=== PATIENT | female | born 1995 | race Caucasian/White ===

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

== ENCOUNTER 2017-01-09 20:36 | Emergency (ER) | payer OTHER ==
[~2017-01-09] VITALS: Ht 165.1 cm; Wt 72.6 kg
[~2017-01-09 20:36] MED LIST changes: -DEXTROAMPH SACC20 M1 PO; -Motrin,Rufen800 MG PO; -PENTASA500 M1 PO; -ULTRAM50 MG PO
[2017-01-09] MEDS ORDERED: PENTASA500 M1 PO (20:51)
[2017-01-09] MEDS ORDERED: DEXTROAMPH SACC20 M1 PO (20:51)
[2017-01-09 21:37] LABS: BASO % 0.3 % (0.0-1.0); EOS # 0.1 10*3/uL (0.0-0.4); EOS % 1.1 % (1.0-4.0); HEMATOCRIT 40.4 % (37.0-47.0); HEMOGLOBIN 13.7 g/dl (12.0-16.0); LYMPH # 2.7 10*3/uL (1.3-4.4); LYMPH % 30.3 % (27.0-41.0); MEAN CELL VOLUME 91.6 fl (81.0-99.0); MEAN CORPUSCULAR HGB 31.1 pg (27.0-31.0); MEAN CORPUSCULAR HGB CONC 33.9 g/dl (33.0-37.0); MEAN PLATELET VOLUME 8.8 fl (9.6-12.3); MONO # 0.7 10*3/uL (0.1-1.0); MONO % 8.1 % (3.0-9.0); NEUT # 5.4 10*3/uL (2.3-7.9); PLATELET COUNT AUTOMATED 375 10*3/uL (130-400); RED BLOOD COUNT 4.41 10*6/uL (4.10-5.10); WHITE BLOOD COUNT 9.1 10*3/uL (4.8-10.8)
[2017-01-09 21:53] LABS: ALBUMIN 4.1 gm/dl (3.1-4.5); ALKALINE PHOSPHATASE 85 U/L (45-117); BILIRUBIN, TOTAL 0.1 mg/dl (0.2-1.0); BUN 11 mg/dl (7-24); CARBON DIOXIDE 25 mmol/L (21-32); CHLORIDE 108 mmol/L (98-107); EST GLOM FILT AFRICAN AMERICAN > 60 ml/min; GLUCOSE 87 mg/dL (65-99); SGOT/AST 14 IU/L (3-35); SGPT/ALT 22 U/L (12-78); SODIUM 143 mmol/L (136-145); TOTAL PROTEIN 7.3 gm/dL (6.4-8.2)
[2017-01-09] MEDS ORDERED: Motrin,Rufen800 MG PO (22:46)
[2017-01-09] MEDS ORDERED: ULTRAM50 MG PO (22:46)
== END 2017-01-09 23:21 | disposition home or self-care (01) ==
LOC: ED 20:36
PROVIDERS: Physician Assistant
DX: G89.29 Other chronic pain (principal); R10.32 Left lower quadrant pain; F17.200 Nicotine dependence, unspecified, uncomplicated; Z91.030 Bee allergy status; Z88.8 Allergy status to other drugs, medicaments and biological substances

== ENCOUNTER 2017-03-19 10:56 | Emergency (ER) | payer OTHER ==
[~2017-03-19] VITALS: Wt 72.6 kg
[~2017-03-19 10:56] MED LIST changes: +DEXTROAMPH SACC20 M1 PO; +Motrin,Rufen800 MG PO; +PENTASA500 M1 PO; +ULTRAM50 MG PO
[2017-03-19 11:02] VITALS: BP 104/70
[2017-03-19 11:29] LABS: BASO % 0.4 % (0.0-1.0); EOS # 0.2 10*3/uL (0.0-0.4); EOS % 1.8 % (1.0-4.0); HEMATOCRIT 46.2 % (37.0-47.0); HEMOGLOBIN 15.8 g/dl (12.0-16.0); LYMPH # 2.5 10*3/uL (1.3-4.4); LYMPH % 30.2 % (27.0-41.0); MEAN CELL VOLUME 91.1 fl (81.0-99.0); MEAN CORPUSCULAR HGB 31.2 pg (27.0-31.0); MEAN CORPUSCULAR HGB CONC 34.2 g/dl (33.0-37.0); MONO # 0.8 10*3/uL (0.1-1.0); MONO % 9.3 % (3.0-9.0); NEUT # 4.9 10*3/uL (2.3-7.9); NEUT % 58.2 % (47.0-73.0); PLATELET COUNT AUTOMATED 412 10*3/uL (130-400); RED BLOOD COUNT 5.07 10*6/uL (4.10-5.10); RED CELL DISTRI WIDTH 12.7 % (0-14.5); WHITE BLOOD COUNT 8.4 10*3/uL (4.8-10.8)
[2017-03-19 11:44] LABS: ALKALINE PHOSPHATASE 91 U/L (45-117); BILIRUBIN, TOTAL 0.3 mg/dl (0.2-1.0); BUN 14 mg/dl (7-24); CARBON DIOXIDE 27 mmol/L (21-32); CHLORIDE 105 mmol/L (98-107); EST GLOM FILT AFRICAN AMERICAN > 60 ml/min; GLUCOSE 92 mg/dL (65-99); POTASSIUM 3.5 mmol/L (3.5-5.1); SGOT/AST 21 IU/L (3-35); SGPT/ALT 29 U/L (12-78); SODIUM 141 mmol/L (136-145); TOTAL PROTEIN 8.6 gm/dL (6.4-8.2)
[2017-03-19 12:17] LABS: BILIRUBIN 1+ (NEGATIVE); BLOOD TRACE-INTACT (NEGATIVE); CLARITY SL CLOUDY (CLEAR); COLOR YELLOW (YELLOW); GLUCOSE NEGATIVE (NEGATIVE); KETONE NEGATIVE (NEGATIVE); LEUKO ESTERASE NEGATIVE (NEGATIVE); NITRITE NEGATIVE (NEGATIVE); PROTEIN 1+ (NEGATIVE); SPECIFIC GRAVITY 1.025 (1.005-1.030)
[2017-03-19 12:28] LABS: BACTERIA TRACE; MUCOUS 1+
[2017-03-19 12:29] LABS: URINE REFLEX COMMENT NO (NO)
[2017-03-19] MEDS ORDERED: ZOFRAN4 MG PO (12:38)
== END 2017-03-19 12:44 | disposition home or self-care (01) ==
LOC: ED 10:56
PROVIDERS: Nurse Practitioner Family
DX: R10.30 Lower abdominal pain, unspecified (principal); R11.2 Nausea with vomiting, unspecified; R19.7 Diarrhea, unspecified; F31.9 Bipolar disorder, unspecified; G89.29 Other chronic pain; F17.200 Nicotine dependence, unspecified, uncomplicated; Z91.030 Bee allergy status; Z79.899 Other long term (current) drug therapy

== ENCOUNTER → 2017-04-29 | Outpatient (CLI) | payer OTHER ==
[~2017-04-29] MED LIST changes: +PERCOCET 325 MG1 TA2 PO
[2017-05-01 08:08] LABS: PROGESTERONE 004317 0.3 ng/mL (.)
== END | disposition home or self-care (01) ==
LOC: LAB 19:03
PROVIDERS: Obstetrics & Gynecology
DX: N92.6 Irregular menstruation, unspecified (principal); N94.6 Dysmenorrhea, unspecified

== ENCOUNTER → 2017-05-02 | Day surgery (SDC) | payer OTHER ==
[2017-05-02] VITALS (8 sets, daily range): BP systolic 95–110; BP diastolic 45–72
[~2017-05-02] VITALS: Ht 165.1 cm; Wt 72.6 kg
[2017-05-02 06:55] LABS: BASO % 0.5 % (0.0-1.0); EOS # 0.1 10*3/uL (0.0-0.4); EOS % 1.7 % (1.0-4.0); HEMATOCRIT 42.1 % (37.0-47.0); HEMOGLOBIN 13.9 g/dl (12.0-16.0); LYMPH # 4.9 10*3/uL (1.3-4.4); LYMPH % 58.2 % (27.0-41.0); MEAN CELL VOLUME 93.8 fl (81.0-99.0); MEAN PLATELET VOLUME 8.9 fl (9.6-12.3); MONO # 0.8 10*3/uL (0.1-1.0); MONO % 9.2 % (3.0-9.0); NEUT # 2.5 10*3/uL (2.3-7.9); NEUT % 30.3 % (47.0-73.0); PLATELET COUNT AUTOMATED 355 10*3/uL (130-400); RED BLOOD COUNT 4.49 10*6/uL (4.10-5.10); RED CELL DISTRI WIDTH 12.5 % (0-14.5); WHITE BLOOD COUNT 8.4 10*3/uL (4.8-10.8)
== END | disposition home or self-care (01) ==
LOC: SDC 04-25 09:30
PROVIDERS: Obstetrics & Gynecology
DX: Z30.2 Encounter for sterilization (principal); N92.0 Excessive and frequent menstruation with regular cycle; N94.6 Dysmenorrhea, unspecified

== ENCOUNTER 2017-06-12 16:52 | Emergency (ER) | payer OTHER ==
[~2017-06-12] VITALS: Wt 72.6 kg
[2017-06-12 16:56] VITALS: BP 116/68
[2017-06-12 17:22] LABS: BASO % 0.3 % (0.0-1.0); EOS % 0.4 % (1.0-4.0); HEMATOCRIT 40.8 % (37.0-47.0); HEMOGLOBIN 13.6 g/dl (12.0-16.0); LYMPH # 2.8 10*3/uL (1.3-4.4); MEAN CELL VOLUME 91.7 fl (81.0-99.0); MEAN CORPUSCULAR HGB 30.6 pg (27.0-31.0); MEAN CORPUSCULAR HGB CONC 33.3 g/dl (33.0-37.0); MEAN PLATELET VOLUME 9.1 fl (9.6-12.3); MONO # 0.8 10*3/uL (0.1-1.0); MONO % 7.5 % (3.0-9.0); NEUT # 6.6 10*3/uL (2.3-7.9); NEUT % 64.6 % (47.0-73.0); PLATELET COUNT AUTOMATED 319 10*3/uL (130-400); RED BLOOD COUNT 4.45 10*6/uL (4.10-5.10); RED CELL DISTRI WIDTH 12.8 % (0-14.5); WHITE BLOOD COUNT 10.2 10*3/uL (4.8-10.8)
[2017-06-12 17:38] LABS: ALKALINE PHOSPHATASE 87 U/L (45-117); BUN 11 mg/dl (7-24); CHLORIDE 106 mmol/L (98-107); CREATININE 0.85 mg/dL (0.55-1.02); POTASSIUM 3.6 mmol/L (3.5-5.1); SGOT/AST 13 IU/L (3-35); SGPT/ALT 17 U/L (12-78); SODIUM 141 mmol/L (136-145); TOTAL PROTEIN 7.5 gm/dL (6.4-8.2)
== END 2017-06-12 20:18 | disposition home or self-care (01) ==
LOC: ED 16:52
PROVIDERS: Physician Assistant
DX: T78.40XA Allergy, unspecified, initial encounter (principal); F17.200 Nicotine dependence, unspecified, uncomplicated; Z79.899 Other long term (current) drug therapy; X58.XXXA Exposure to other specified factors, initial encounter

== ENCOUNTER 2017-07-14 15:09 | Emergency (ER) | payer OTHER ==
[~2017-07-14] VITALS: Ht 165.1 cm; Wt 70.8 kg
[2017-07-14 15:31] LABS: BASO % 0.4 % (0.0-1.0); EOS # 0.1 10*3/uL (0.0-0.4); EOS % 1.2 % (1.0-4.0); HEMATOCRIT 44.7 % (37.0-47.0); LYMPH # 2.8 10*3/uL (1.3-4.4); LYMPH % 39.9 % (27.0-41.0); MEAN CORPUSCULAR HGB 30.9 pg (27.0-31.0); MEAN CORPUSCULAR HGB CONC 33.6 g/dl (33.0-37.0); MONO # 0.7 10*3/uL (0.1-1.0); MONO % 10.1 % (3.0-9.0); NEUT # 3.3 10*3/uL (2.3-7.9); NEUT % 48.3 % (47.0-73.0); PLATELET COUNT AUTOMATED 388 10*3/uL (130-400); RED BLOOD COUNT 4.86 10*6/uL (4.10-5.10); RED CELL DISTRI WIDTH 12.7 % (0-14.5); WHITE BLOOD COUNT 6.9 10*3/uL (4.8-10.8)
[2017-07-14 15:46] LABS: ALBUMIN 4.5 gm/dl (3.1-4.5); ALKALINE PHOSPHATASE 91 U/L (45-117); BUN 11 mg/dl (7-24); CHLORIDE 105 mmol/L (98-107); CREATININE 0.84 mg/dL (0.55-1.02); POTASSIUM 4.1 mmol/L (3.5-5.1); SGOT/AST 13 IU/L (3-35); SGPT/ALT 24 U/L (12-78); SODIUM 137 mmol/L (136-145); TOTAL PROTEIN 8.4 gm/dL (6.4-8.2)
[2017-07-14 15:48] VITALS: BP 105/65
[2017-07-14 16:15] LABS: BILIRUBIN 1+ (NEGATIVE); BLOOD TRACE-INTACT (NEGATIVE); CLARITY CLEAR (CLEAR); COLOR YELLOW (YELLOW); GLUCOSE NEGATIVE (NEGATIVE); KETONE 1+ (NEGATIVE); LEUKO ESTERASE NEGATIVE (NEGATIVE); NITRITE NEGATIVE (NEGATIVE); PH 5.5 (5.0-9.0); SPECIFIC GRAVITY >= 1.030 (1.005-1.030); UROBILINOGEN 0.2 E.U./dl (0.2-1.0)
[2017-07-14 16:26] LABS: BACTERIA 2+; MUCOUS TRACE; RBC 0-2 rbc/hpf (0-2); WBC 0-2 wbc/hpf (0-5)
[2017-07-14] MEDS ORDERED: NAPROSYN500 MG PO (17:19)
[2017-07-14] MEDS ORDERED: ZOFRAN4 MG PO (17:19)
== END 2017-07-14 22:19 | disposition home or self-care (01) ==
LOC: ED 15:09
PROVIDERS: Nurse Practitioner Family
DX: R10.31 Right lower quadrant pain (principal); G89.29 Other chronic pain; F17.200 Nicotine dependence, unspecified, uncomplicated; Z90.89 Acquired absence of other organs; Z79.899 Other long term (current) drug therapy

== ENCOUNTER 2017-07-18 23:00 | Emergency (ER) | payer OTHER ==
[~2017-07-18] VITALS: Ht 165.1 cm; Wt 72.6 kg
[~2017-07-18 23:00] MED LIST changes: +NAPROSYN500 MG PO
[2017-07-18 23:07] VITALS: BP 116/72
[2017-07-18] MEDS ORDERED: PREDNISONE20 M1 PO (23:14)
[2017-07-18] MEDS ORDERED: ATARAX,VISTARIL50 MG PO (23:14)
[2017-07-21] MEDS ORDERED: NORCO 5-325 TA1 EACH PO (16:09)
== END 2017-07-19 00:02 | disposition home or self-care (01) ==
LOC: ED 23:00
DX: L23.9 Allergic contact dermatitis, unspecified cause (principal); F17.200 Nicotine dependence, unspecified, uncomplicated; Z79.899 Other long term (current) drug therapy

== ENCOUNTER 2017-07-21 20:46 | Inpatient (IN) | payer OTHER ==
[~2017-07-21] VITALS: Ht 165.1 cm; Wt 72.6 kg
--- NOTE | ~2017-07-21 | WRIGHTHP ---
[place], [place] PATIENT HISTORY AND PHYSICAL EXAM NAME: JAMILAH YIP UNIT #: [id number] ROOM: H2005 DOCTOR: MADIHA SAUCEDO MD BIRTHDATE: [birth year] DOS: 07/22/2017 CHIEF COMPLAINT: Abdominal pain. HISTORY OF PRESENT ILLNESS: She had returned after getting appendectomy done. The patient had abdominal pain after appendectomy. She was admitted and she was discharged the same time. The patient was discussed by the ER doctor, called with me and then I wanted the patient to be admitted overnight for observation, but the patient actually was not there in the morning, probably she left against medical advice. I did not have chance to see the patient. I reviewed the medical records and it did show that she left against medical advice from the ER itself. MADIHA SAUCEDO MD CM:HISPHYS:PATIENT HISTORY AND PHYSICAL EXAMINATION [id number] MADIHA SAUCEDO MD 07/26/17 1338 interface
[2017-07-21 20:57] VITALS: BP 117/71
[2017-07-21 21:26] LABS: HEMATOCRIT 42.8 % (37.0-47.0); HEMOGLOBIN 14.1 g/dl (12.0-16.0); MEAN CELL VOLUME 93.2 fl (81.0-99.0); MEAN CORPUSCULAR HGB 30.7 pg (27.0-31.0); MEAN CORPUSCULAR HGB CONC 32.9 g/dl (33.0-37.0); MEAN PLATELET VOLUME 9.4 fl (9.6-12.3); PLATELET COUNT AUTOMATED 372 10*3/uL (130-400); RED BLOOD COUNT 4.59 10*6/uL (4.10-5.10); RED CELL DISTRI WIDTH 12.9 % (0-14.5); WHITE BLOOD COUNT 19.8 10*3/uL (4.8-10.8)
[2017-07-21 21:29] LABS: BILIRUBIN NEGATIVE (NEGATIVE); BLOOD TRACE-INTACT (NEGATIVE); CLARITY CLEAR (CLEAR); COLOR YELLOW (YELLOW); GLUCOSE 1+ (NEGATIVE); KETONE NEGATIVE (NEGATIVE); LEUKO ESTERASE NEGATIVE (NEGATIVE); NITRITE NEGATIVE (NEGATIVE); PH 5.5 (5.0-9.0); SPECIFIC GRAVITY <= 1.005 (1.005-1.030); UROBILINOGEN 0.2 E.U./dl (0.2-1.0)
[2017-07-21 21:37] LABS: BACTERIA TRACE; EPITHELIAL CELLS 0-2; RBC 0-2 rbc/hpf (0-2); WBC 0-2 wbc/hpf (0-5)
[2017-07-21 21:42] LABS: ALBUMIN 4.2 gm/dl (3.1-4.5); ALKALINE PHOSPHATASE 97 U/L (45-117); BUN 7 mg/dl (7-24); CHLORIDE 105 mmol/L (98-107); CREATININE 1.04 mg/dL (0.55-1.02); POTASSIUM 3.9 mmol/L (3.5-5.1); SGOT/AST 14 IU/L (3-35); SGPT/ALT 23 U/L (12-78); SODIUM 137 mmol/L (136-145)
[2017-07-21 21:44] LABS: TOTAL CELLS COUNTED 100 #CELLS
[2017-07-21 21:45] LABS: PLATELET SUFFICIENCY NORMAL (NORMAL)
== END 2017-07-21 23:58 | disposition left against medical advice (07) | DRG 948 ==
LOC: ED 20:46 → EDHOLD 23:11
PROVIDERS: Student in an Organized Health Care Education/Training Program; ADMIT Internal Medicine
DX: G89.18 Other acute postprocedural pain (principal); E66.3 Overweight; Z53.21 Procedure and treatment not carried out due to patient leaving prior to being seen by health care provider; F31.9 Bipolar disorder, unspecified; F17.200 Nicotine dependence, unspecified, uncomplicated; Z68.25 Body mass index [BMI] 25.0-25.9, adult; Z90.49 Acquired absence of other specified parts of digestive tract; Z79.899 Other long term (current) drug therapy

== ENCOUNTER → 2017-07-21 | Day surgery (SDC) | payer OTHER ==
[~2017-07-21] VITALS: Ht 165.1 cm; Wt 72.6 kg
[2017-07-21] VITALS (7 sets, daily range): BP systolic 101–119; BP diastolic 52–75
[~2017-07-21] MED LIST changes: +ATARAX,VISTARIL50 MG PO; +NORCO 5-325 TA1 EACH PO; +PREDNISONE20 M1 PO
--- NOTE | ~2017-07-21 | O ---
[place], [place] OPERATIVE NOTE NAME: JAMILAH YIP UNIT #: [id number] ROOM: DOCTOR: ANDREAS LEIJA MD BIRTHDATE: [birth year] DOS: 07/21/2017 PREOPERATIVE DIAGNOSIS: Acute appendicitis. POSTOPERATIVE DIAGNOSIS: Acute appendicitis. PROCEDURE: Laparoscopic appendectomy. SURGEON: Andreas Leija MD HR BUSINESS PARTNER: [id number]. ANESTHESIA: GET. INDICATIONS: This is a 22-year-old lady with a history of right lower quadrant pain and was found to have acute appendicitis on a CAT scan. The patient was taken to the operating room for the above-mentioned procedure. The procedure and its complications explained to the patient in detail preoperatively. Complications that were discussed included but were not limited to bleeding, infection, hematoma/seroma/abscess formation, prolonged postoperative pain, damage to underlying vital structures, inadvertent injury to surrounding vital structures and incisional hernia formation. She agreed to proceed. DESCRIPTION OF PROCEDURE: After identifying the patient, the patient was brought to the operating suite and laid in the supine position. After induction of general anesthesia, the parts were painted and draped in the usual sterile fashion and prior to this, a timeout procedure was called and the Vergara catheter was placed into the urinary bladder. An incision was made in a subumbilical position in a transverse fashion. The skin and the subcutaneous tissue were incised. The fascia was incised vertically and 2 stay sutures with 0 Vicryl were taken on either side. The peritoneum was opened and a 12 mm Ned port was introduced into the peritoneal cavity. Left lower quadrant transverse incision of 10 mm was made and a suprapubic 5 mm incision was made and appropriate size ports were introduced into the peritoneal cavity. The cecum and appendix were visualized and the appendix was found to be acutely inflamed. It was held up with the help of an Endobabcock forceps and with the help of an Endo-DONALD stapler the mesoappendix and the appendix was stapled across. The appendix was then placed in an EndoCatch bag and removed from the peritoneal cavity and sent for histopathological diagnosis. The area of the mesoappendix was visualized and mild bleeding was controlled with the help of electrocautery. Thereafter, saline was used for irrigation and after hemostasis was confirmed, the suprapubic and the left lower quadrant ports were removed and there was no bleeding seen. The umbilical port was also removed and the 2 stay sutures were tied together and an additional 0 Vicryl stitch was taken to close the fascia. Thereafter, local anesthesia was infiltrated in all the 3 incisions and the incisions themselves were approximated with the help of 4-0 Vicryl in a subcuticular running fashion. Dressings were placed. The patient tolerated the procedure well. There were no complications. The Vergara catheter was removed. The patient was extubated and brought back to the recovery room in stable fashion. There were no complications. Dr. Andreas Leija, the attending surgeon, [place], [place] OPERATIVE NOTE NAME: JAMILAH YIP ANN UNIT #: [id number] ROOM: DOCTOR: ANDREAS LEIJA MD BIRTHDATE: [birth year] was present throughout the operating case. Andreas Leija MD CM:OPRECORD:OPERATIVE NOTE [id number] ANDREAS LEIJA MD 07/21/17 1836 interface
[2017-07-21 08:58] LABS: BASO % 0.2 % (0.0-1.0); EOS % 0.2 % (1.0-4.0); HEMATOCRIT 43.6 % (37.0-47.0); HEMOGLOBIN 14.4 g/dl (12.0-16.0); LYMPH # 4.5 10*3/uL (1.3-4.4); LYMPH % 27.1 % (27.0-41.0); MEAN CELL VOLUME 94.2 fl (81.0-99.0); MEAN CORPUSCULAR HGB 31.1 pg (27.0-31.0); MEAN PLATELET VOLUME 9.5 fl (9.6-12.3); MONO # 1.1 10*3/uL (0.1-1.0); MONO % 6.6 % (3.0-9.0); NEUT # 10.9 10*3/uL (2.3-7.9); NEUT % 65.5 % (47.0-73.0); PLATELET COUNT AUTOMATED 350 10*3/uL (130-400); RED BLOOD COUNT 4.63 10*6/uL (4.10-5.10); RED CELL DISTRI WIDTH 13.2 % (0-14.5); WHITE BLOOD COUNT 16.7 10*3/uL (4.8-10.8)
[2017-07-21 09:14] LABS: ALBUMIN 3.9 gm/dl (3.1-4.5); ALKALINE PHOSPHATASE 81 U/L (45-117); BUN 13 mg/dl (7-24); CHLORIDE 108 mmol/L (98-107); CREATININE 0.84 mg/dL (0.55-1.02); LIPASE 79 U/L (73-393); MAGNESIUM 2.1 mg/dL (1.5-2.1); POTASSIUM 3.7 mmol/L (3.5-5.1); SGOT/AST 15 IU/L (3-35); SGPT/ALT 23 U/L (12-78); SODIUM 141 mmol/L (136-145); TOTAL PROTEIN 7.4 gm/dL (6.4-8.2)
[2017-07-21 09:17] LABS: BETA-HCG, QUANT < 1.0 mIU/mL (1-3)
--- NOTE | 2017-07-21 09:30 | NUR ---
PT STATES THAT TORADOL WAS NOT EFFECTIVE AT THIS TIME PT RATES PAIN /10. PT ALSO C/O NAUSEA WITH NO EMESIS AT THIS TIME. DR CARROLL NOTIFIED. SEE NEW ORDERS
--- NOTE | 2017-07-21 10:00 | NUR ---
PT MEDICATED AT THIS TIME FOR PAIN AND NAUSEA PER DR ORDERS. SPO2 MONITORING INTACT WITH SPO2 OF 99% ON RA. WILL CONTINUE TO MONITOR.
[2017-07-21 10:05] LABS: BILIRUBIN NEGATIVE (NEGATIVE); BLOOD NEGATIVE (NEGATIVE); CLARITY SL CLOUDY (CLEAR); COLOR YELLOW (YELLOW); GLUCOSE NEGATIVE (NEGATIVE); KETONE NEGATIVE (NEGATIVE); LEUKO ESTERASE NEGATIVE (NEGATIVE); NITRITE NEGATIVE (NEGATIVE); SPECIFIC GRAVITY >= 1.030 (1.005-1.030); UROBILINOGEN 0.2 E.U./dl (0.2-1.0)
[2017-07-21 10:10] LABS: BACTERIA TRACE; EPITHELIAL CELLS 16-20; RBC 0-2 rbc/hpf (0-2)
--- NOTE | 2017-07-21 10:40 | NUR ---
PT STATES THAT THE PAIN MEDICATION GIVED IS NO LONGER AFFECTIVE. SHE IS RATING HER PAIN AN 8/10 AT THIS TIME. WILL MEDICATE PER DOCTORS ORDERS.
--- NOTE | 2017-07-21 11:20 | NUR ---
PT MEDICATED PER DOCTORS ORDERS. VS STABLE. WILL CONTINUE TO MONITOR.
--- NOTE | 2017-07-21 11:50 | NUR ---
PT STATES THAT THE MEDICATION GIVEN DID ALLEVIATE THE PAIN. VS STABLE. WILL CONTINUE TO MONITOR.
== END | disposition home or self-care (01) ==
LOC: ED 08:10 → EDHOLD 14:07 → ED 14:07 → 5E 14:52 → EDHOLD 14:52 → SDC 14:52
PROVIDERS: Family Medicine Adult Medicine
DX: K35.80 Unspecified acute appendicitis (principal); F17.210 Nicotine dependence, cigarettes, uncomplicated; Z98.890 Other specified postprocedural states; Z79.899 Other long term (current) drug therapy

== ENCOUNTER 2017-09-10 17:44 | Emergency (ER) | payer OTHER ==
[~2017-09-10] VITALS: Ht 165.1 cm; Wt 72.6 kg
[2017-09-10 17:52] VITALS: BP 105/57
[2017-09-10 18:10] LABS: BILIRUBIN 1+ (NEGATIVE); BLOOD TRACE-INTACT (NEGATIVE); CLARITY CLEAR (CLEAR); COLOR ORANGE (YELLOW); GLUCOSE 1+ (NEGATIVE); KETONE TRACE (NEGATIVE); NITRITE POSITIVE (NEGATIVE); SPECIFIC GRAVITY <= 1.005 (1.005-1.030); UROBILINOGEN >= 8.0 E.U./dl (0.2-1.0)
[2017-09-10 18:17] LABS: LEUKO ESTERASE 1+ (NEGATIVE)
[2017-09-10 18:24] LABS: BACTERIA TRACE
[2017-09-10 18:25] LABS: EPITHELIAL CELLS 16-20
[2017-09-10] MEDS ORDERED: Bactrim DS PO (18:28)
[2017-09-10] MEDS ORDERED: PYRIDIUM200 M1 PO (18:28)
== END 2017-09-10 18:30 | disposition home or self-care (01) ==
LOC: ED 17:44
PROVIDERS: Nurse Practitioner Family
DX: N39.0 Urinary tract infection, site not specified (principal); F17.200 Nicotine dependence, unspecified, uncomplicated; E66.3 Overweight; E78.00 Pure hypercholesterolemia, unspecified; Z90.49 Acquired absence of other specified parts of digestive tract; Z79.899 Other long term (current) drug therapy

== ENCOUNTER 2017-09-24 21:46 | Emergency (ER) | payer OTHER ==
[~2017-09-24] VITALS: Ht 166.3 cm; Wt 72.6 kg
[~2017-09-24 21:46] MED LIST changes: +Bactrim DS PO; +PYRIDIUM200 M1 PO
[2017-09-24 21:53] VITALS: BP 120/74
[2017-09-24] MEDS ORDERED: AMOXICILLI400 MG/51 PO (22:19)
[2017-09-24 22:44] LABS: BILIRUBIN NEGATIVE (NEGATIVE); BLOOD TRACE-LYSED (NEGATIVE); CLARITY SL CLOUDY (CLEAR); COLOR YELLOW (YELLOW); GLUCOSE NEGATIVE (NEGATIVE); KETONE NEGATIVE (NEGATIVE); LEUKO ESTERASE NEGATIVE (NEGATIVE); NITRITE NEGATIVE (NEGATIVE); PH 5.5 (5.0-9.0); SPECIFIC GRAVITY 1.015 (1.005-1.030); UROBILINOGEN 0.2 E.U./dl (0.2-1.0)
[2017-09-24 22:58] LABS: BACTERIA 2+; EPITHELIAL CELLS 15-20
[2017-09-24 23:01] LABS: BASO % 0.3 % (0.0-1.0); EOS % 0.6 % (1.0-4.0); HEMOGLOBIN 13.7 g/dl (12.0-16.0); LYMPH # 2.7 10*3/uL (1.3-4.4); LYMPH % 40.7 % (27.0-41.0); MEAN CELL VOLUME 92.1 fl (81.0-99.0); MEAN CORPUSCULAR HGB 30.8 pg (27.0-31.0); MEAN CORPUSCULAR HGB CONC 33.4 g/dl (33.0-37.0); MEAN PLATELET VOLUME 8.8 fl (9.6-12.3); MONO # 0.5 10*3/uL (0.1-1.0); MONO % 7.2 % (3.0-9.0); NEUT # 3.3 10*3/uL (2.3-7.9); PLATELET COUNT AUTOMATED 342 10*3/uL (130-400); RED BLOOD COUNT 4.45 10*6/uL (4.10-5.10); RED CELL DISTRI WIDTH 11.9 % (0-14.5); WHITE BLOOD COUNT 6.5 10*3/uL (4.8-10.8)
[2017-09-24 23:16] LABS: ALBUMIN 4.7 gm/dl (3.1-4.5); ALKALINE PHOSPHATASE 91 U/L (45-117); BUN 8 mg/dl (7-24); CHLORIDE 104 mmol/L (98-107); CREATININE 0.73 mg/dL (0.55-1.02); LIPASE 77 U/L (73-393); POTASSIUM 3.5 mmol/L (3.5-5.1); SGOT/AST 13 IU/L (3-35); SGPT/ALT 20 U/L (12-78); SODIUM 138 mmol/L (136-145); TOTAL PROTEIN 8.3 gm/dL (6.4-8.2)
[2017-09-25 01:46] LABS: HEMATOCRIT 38.5 % (37.0-47.0); HEMOGLOBIN 12.6 g/dl (12.0-16.0)
[2017-09-25] MEDS ORDERED: CIPRO500 MG PO (01:57)
[2017-09-25] MEDS ORDERED: FLAGYL500 MG PO (01:57)
[2017-09-25] MEDS ORDERED: NORCO 5-325 TA1 EACH PO (01:57)
== END 2017-09-25 02:30 | disposition home or self-care (01) ==
LOC: ED 21:46
PROVIDERS: Physician Assistant
DX: K51.90 Ulcerative colitis, unspecified, without complications (principal); F17.200 Nicotine dependence, unspecified, uncomplicated; Z91.030 Bee allergy status; Z88.8 Allergy status to other drugs, medicaments and biological substances; Z90.89 Acquired absence of other organs

== ENCOUNTER → 2017-10-19 | Outpatient (CLI) | payer OTHER ==
[~2017-10-19] MED LIST changes: +AMOXICILLI400 MG/51 PO; +CIPRO500 MG PO; +FLAGYL500 MG PO
== END ==
LOC: LAB 15:30
DX: N97.9 Female infertility, unspecified (principal)

== ENCOUNTER → 2017-11-21 | Outpatient (CLI) | payer OTHER | END | disposition home or self-care (01) | LOC: LAB 11-19 17:36 | DX: N97.9 Female infertility, unspecified (principal) ==

== ENCOUNTER 2018-06-28 21:36 | Emergency (ER) | payer OTHER ==
[~2018-06-28] VITALS: Ht 165.1 cm; Wt 66.7 kg
--- NOTE | ~2018-06-28 | EKG ---
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
[2018-06-28 21:42] VITALS: BP 88/51
[2018-06-28 21:57] VITALS: BP 93/59
[2018-06-28 22:29] VITALS: BP 86/49
[2018-06-28 22:33] LABS: BASO % 0.2 % (0.0-1.0); EOS # 0.1 10*3/uL (0.0-0.4); EOS % 0.6 % (1.0-4.0); HEMATOCRIT 39.3 % (37.0-47.0); HEMOGLOBIN 13.1 g/dl (12.0-16.0); LYMPH # 3.3 10*3/uL (1.3-4.4); LYMPH % 33.2 % (27.0-41.0); MEAN CELL VOLUME 93.3 fl (81.0-99.0); MEAN CORPUSCULAR HGB 31.1 pg (27.0-31.0); MEAN CORPUSCULAR HGB CONC 33.3 g/dl (33.0-37.0); MEAN PLATELET VOLUME 8.9 fl (9.6-12.3); MONO # 0.9 10*3/uL (0.1-1.0); MONO % 9.3 % (3.0-9.0); NEUT # 5.5 10*3/uL (2.3-7.9); NEUT % 56.5 % (47.0-73.0); PLATELET COUNT AUTOMATED 302 10*3/uL (130-400); RED BLOOD COUNT 4.21 10*6/uL (4.10-5.10); RED CELL DISTRI WIDTH 12.9 % (0-14.5); WHITE BLOOD COUNT 9.8 10*3/uL (4.8-10.8)
[2018-06-28 22:44] VITALS: BP 97/58
[2018-06-28 22:49] LABS: ACETAMINOPHEN (TYLENOL) < 2.0 ug/ml (10-30); ALBUMIN 3.4 gm/dl (3.1-4.5); ALKALINE PHOSPHATASE 41 U/L (45-117); BUN 11 mg/dl (7-24); CHLORIDE 110 mmol/L (98-107); CREATININE 0.74 mg/dL (0.55-1.02); ETHYL ALCOHOL < 3.0 mg/dl (<3); POTASSIUM 3.7 mmol/L (3.5-5.1); SGOT/AST 15 IU/L (3-35); SGPT/ALT 16 U/L (12-78); SODIUM 139 mmol/L (136-145); TOTAL PROTEIN 6.5 gm/dL (6.4-8.2)
[2018-06-28 23:03] VITALS: BP 93/56
[2018-06-28 23:18] VITALS: BP 95/48
[2018-06-29] VITALS: BP 92/51
== END 2018-06-29 00:50 | disposition left against medical advice (07) ==
LOC: ED 21:36 → EDHOLD 23:39 → ED 23:39 → ICCU 06-29 00:11 → EDHOLD 06-29 00:11 → ED 06-29 00:50
PROVIDERS: Emergency Medicine Emergency Medical Services
DX: T42.4X1A Poisoning by benzodiazepines, accidental (unintentional), initial encounter (principal); R07.9 Chest pain, unspecified; R42 Dizziness and giddiness; R00.1 Bradycardia, unspecified; Z87.891 Personal history of nicotine dependence; Z91.030 Bee allergy status; Y92.89 Other specified places as the place of occurrence of the external cause

== ENCOUNTER 2018-07-04 15:00 | Emergency (ER) | payer OTHER ==
[~2018-07-04] VITALS: Ht 165.1 cm; Wt 68.0 kg
[2018-07-04 15:02] VITALS: BP 114/75
[2018-07-04 15:33] LABS: BASO % 0.2 % (0.0-1.0); EOS # 0.1 10*3/uL (0.0-0.4); EOS % 0.6 % (1.0-4.0); HEMATOCRIT 41.8 % (37.0-47.0); LYMPH # 2.6 10*3/uL (1.3-4.4); MEAN CELL VOLUME 91.7 fl (81.0-99.0); MEAN CORPUSCULAR HGB 30.7 pg (27.0-31.0); MEAN CORPUSCULAR HGB CONC 33.5 g/dl (33.0-37.0); MONO # 0.9 10*3/uL (0.1-1.0); MONO % 9.7 % (3.0-9.0); NEUT # 5.9 10*3/uL (2.3-7.9); NEUT % 62.3 % (47.0-73.0); PLATELET COUNT AUTOMATED 340 10*3/uL (130-400); RED BLOOD COUNT 4.56 10*6/uL (4.10-5.10); RED CELL DISTRI WIDTH 13.1 % (0-14.5); WHITE BLOOD COUNT 9.5 10*3/uL (4.8-10.8)
[2018-07-04 15:39] LABS: BILIRUBIN NEGATIVE (NEGATIVE); BLOOD NEGATIVE (NEGATIVE); CLARITY SL CLOUDY (CLEAR); COLOR YELLOW (YELLOW); GLUCOSE NEGATIVE (NEGATIVE); KETONE NEGATIVE (NEGATIVE); LEUKO ESTERASE NEGATIVE (NEGATIVE); NITRITE NEGATIVE (NEGATIVE); SPECIFIC GRAVITY 1.025 (1.005-1.030); UROBILINOGEN 0.2 E.U./dl (0.2-1.0)
[2018-07-04 15:49] LABS: ALBUMIN 4.1 gm/dl (3.1-4.5); ALKALINE PHOSPHATASE 67 U/L (45-117); BUN 6 mg/dl (7-24); CHLORIDE 111 mmol/L (98-107); CREATININE 0.57 mg/dL (0.55-1.02); POTASSIUM 3.5 mmol/L (3.5-5.1); SGOT/AST 16 IU/L (3-35); SGPT/ALT 24 U/L (12-78); SODIUM 140 mmol/L (136-145); TOTAL PROTEIN 7.5 gm/dL (6.4-8.2)
[2018-07-04 15:55] LABS: BACTERIA 1+; WBC 0-2 wbc/hpf (0-5)
[2018-07-04] MEDS ORDERED: VITAMIN B-625 M1 PO (16:24)
[2018-07-04] MEDS ORDERED: UNISOM25 M1 PO (16:24)
[2018-07-04] MEDS ORDERED: PRENATAL VITAM1 EAC4 PO (16:25)
== END 2018-07-04 16:26 | disposition home or self-care (01) ==
LOC: ED 15:00
PROVIDERS: Emergency Medicine
DX: O26.891 Other specified pregnancy related conditions, first trimester (principal); R10.9 Unspecified abdominal pain; F31.9 Bipolar disorder, unspecified; E78.5 Hyperlipidemia, unspecified; I95.9 Hypotension, unspecified; Z91.030 Bee allergy status; Z88.8 Allergy status to other drugs, medicaments and biological substances; Z90.89 Acquired absence of other organs; Z3A.08 8 weeks gestation of pregnancy

== ENCOUNTER → 2018-10-10 | Outpatient (CLI) | payer OTHER ==
[~2018-10-10] MED LIST changes: +PRENATAL VITAM1 EAC4 PO; +UNISOM25 M1 PO; +VITAMIN B-625 M1 PO
== END | disposition home or self-care (01) ==
LOC: US 12:55
DX: Z34.92 Encounter for supervision of normal pregnancy, unspecified, second trimester (principal); Z3A.19 19 weeks gestation of pregnancy

== ENCOUNTER 2018-10-25 03:52 | Emergency (ER) | payer OTHER ==
[~2018-10-25] VITALS: Ht 167.6 cm; Wt 72.6 kg
[2018-10-25 03:53] VITALS: BP 126/92
[2018-10-25 04:10] LABS: BASO % 0.3 % (0.0-1.0); EOS # 0.1 10*3/uL (0.0-0.4); EOS % 0.6 % (1.0-4.0); HEMATOCRIT 35.3 % (37.0-47.0); HEMOGLOBIN 11.9 g/dl (12.0-16.0); LYMPH # 4.4 10*3/uL (1.3-4.4); LYMPH % 34.1 % (27.0-41.0); MEAN CELL VOLUME 94.6 fl (81.0-99.0); MEAN CORPUSCULAR HGB 31.9 pg (27.0-31.0); MEAN CORPUSCULAR HGB CONC 33.7 g/dl (33.0-37.0); MEAN PLATELET VOLUME 8.8 fl (9.6-12.3); MONO # 1.2 10*3/uL (0.1-1.0); MONO % 9.3 % (3.0-9.0); NEUT # 7.1 10*3/uL (2.3-7.9); NEUT % 55.2 % (47.0-73.0); PLATELET COUNT AUTOMATED 359 10*3/uL (130-400); RED BLOOD COUNT 3.73 10*6/uL (4.10-5.10); RED CELL DISTRI WIDTH 13.3 % (0-14.5); WHITE BLOOD COUNT 12.8 10*3/uL (4.8-10.8)
[2018-10-25 04:20] LABS: ACT PARTIAL THROMBO TIME 24.3 SECONDS (20.8-31.5); INTERNATIONAL NORM RATIO 0.9 (2.0-3.5)
[2018-10-25 04:25] LABS: ALBUMIN 2.9 gm/dl (3.1-4.5); ALKALINE PHOSPHATASE 55 U/L (45-117); BUN 8 mg/dl (7-24); CHLORIDE 112 mmol/L (98-107); CREATININE 0.47 mg/dL (0.55-1.02); POTASSIUM 3.7 mmol/L (3.5-5.1); SGOT/AST 5 IU/L (3-35); SGPT/ALT 16 U/L (12-78); SODIUM 140 mmol/L (136-145); TOTAL PROTEIN 6.4 gm/dL (6.4-8.2)
== END 2018-10-25 07:02 | disposition home or self-care (01) ==
LOC: ED 03:52
PROVIDERS: Emergency Medicine Emergency Medical Services
DX: O46.92 Antepartum hemorrhage, unspecified, second trimester (principal); O99.332 Smoking (tobacco) complicating pregnancy, second trimester; F17.200 Nicotine dependence, unspecified, uncomplicated; Z91.030 Bee allergy status; Z3A.22 22 weeks gestation of pregnancy

== ENCOUNTER → 2018-11-28 | Outpatient (CLI) | payer OTHER | END | disposition home or self-care (01) | LOC: US 11:30 | DX: O36.8120 Decreased fetal movements, second trimester, not applicable or unspecified (principal); Z3A.26 26 weeks gestation of pregnancy ==

== ENCOUNTER → 2018-12-12 | Outpatient (CLI) | payer OTHER | END | disposition home or self-care (01) | LOC: US 13:59 | DX: O36.8120 Decreased fetal movements, second trimester, not applicable or unspecified (principal); Z3A.28 28 weeks gestation of pregnancy ==

== ENCOUNTER → 2018-12-16 | Outpatient (CLI) | payer OTHER | END | disposition home or self-care (01) | LOC: LAB 09:19 | DX: Z34.82 Encounter for supervision of other normal pregnancy, second trimester (principal); Z3A.28 28 weeks gestation of pregnancy ==

== ENCOUNTER → 2019-01-18 | Outpatient (CLI) | payer OTHER | END | disposition home or self-care (01) | LOC: US 15:59 | DX: Z34.83 Encounter for supervision of other normal pregnancy, third trimester (principal); Z3A.34 34 weeks gestation of pregnancy ==

== ENCOUNTER 2019-05-18 09:28 | Inpatient (IN) | payer OTHER ==
[~2019-05-18] VITALS: Ht 167.6 cm; Wt 70.8 kg
[2019-05-18 09:30] VITALS: BP 110/77
[2019-05-18 09:56] LABS: BASO % 0.4 % (0.0-1.0); EOS # 0.1 10*3/uL (0.0-0.4); EOS % 0.9 % (1.0-4.0); HEMATOCRIT 44.6 % (37.0-47.0); HEMOGLOBIN 14.7 g/dl (12.0-16.0); LYMPH # 3.3 10*3/uL (1.3-4.4); LYMPH % 47.4 % (27.0-41.0); MEAN CELL VOLUME 93.1 fl (81.0-99.0); MEAN CORPUSCULAR HGB 30.7 pg (27.0-31.0); MEAN PLATELET VOLUME 8.9 fl (9.6-12.3); MONO # 0.7 10*3/uL (0.1-1.0); MONO % 10.6 % (3.0-9.0); NEUT # 2.9 10*3/uL (2.3-7.9); NEUT % 40.6 % (47.0-73.0); PLATELET COUNT AUTOMATED 419 10*3/uL (130-400); RED BLOOD COUNT 4.79 10*6/uL (4.10-5.10); RED CELL DISTRI WIDTH 13.2 % (0-14.5)
[2019-05-18 09:59] LABS: BILIRUBIN NEGATIVE (NEGATIVE); BLOOD NEGATIVE (NEGATIVE); CLARITY CLOUDY (CLEAR); COLOR YELLOW (YELLOW); GLUCOSE NEGATIVE (NEGATIVE); KETONE NEGATIVE (NEGATIVE); LEUKO ESTERASE TRACE (NEGATIVE); NITRITE NEGATIVE (NEGATIVE); SPECIFIC GRAVITY >= 1.030 (1.005-1.030); UROBILINOGEN 0.2 E.U./dl (0.2-1.0)
[2019-05-18 10:07] LABS: INTERNATIONAL NORM RATIO 0.9 (2.0-3.5)
[2019-05-18 10:11] LABS: ALBUMIN 4.1 gm/dl (3.1-4.5); ALKALINE PHOSPHATASE 66 U/L (45-117); BUN 16 mg/dl (7-24); CHLORIDE 108 mmol/L (98-107); CREATININE 0.89 mg/dL (0.55-1.02); LIPASE 69 U/L (73-393); POTASSIUM 3.9 mmol/L (3.5-5.1); SGOT/AST 17 IU/L (3-35); SGPT/ALT 24 U/L (12-78); SODIUM 138 mmol/L (136-145)
[2019-05-18 10:13] VITALS: BP 111/70
--- NOTE | 2019-05-18 10:20 | NUR ---
ZOFRAN AND TORADOL GIVEN BY LINDA ESPARZA
--- NOTE | 2019-05-18 10:21 | NUR ---
DAVID GIVEN BY YARELY Cruz RN
[2019-05-18 10:22] LABS: BACTERIA 3+; EPITHELIAL CELLS 50-55; MUCOUS 3+; RBC 16-20 rbc/hpf (0-2)
--- NOTE | 2019-05-18 10:38 | NUR ---
PT STATES THAT HER PAIN IS COMING BACK. LINDA CHRISTMAS BELL RINGER NOTIFIED.
--- NOTE | 2019-05-18 11:19 | NUR ---
DILAUDID GIVEN IV PUSH BY ERASMO MARSH
[2019-05-18 11:23] VITALS: BP 109/74
[2019-05-18 11:50] VITALS: BP 101/73
--- NOTE | 2019-05-18 12:49 | NUR ---
PT STATES HER PAIN IS COMING BACK AND IS GOING INTO HER BACK. LINDA CLIENT SERVICE REPRESENTATIVE NOTIFED.
[2019-05-18 13:18] VITALS: BP 115/74
[2019-05-18 14:30] VITALS: BP 103/58
--- NOTE | 2019-05-18 14:30 | NUR ---
Time: 1429 A 23 year old FEMALE admitted to under services of BIANCA KEATING DO. Pt. arrived via bed from ER. Chief complaint: ABDOMINAL PAIN. KASSI PERALTA
--- NOTE | 2019-05-18 14:49 | NUR ---
DR. GOODSON CALLED AWARE PT IS IN ROOM.
--- NOTE | 2019-05-18 15:12 | NUR ---
PT AMBULATORY IN ROOM ANXIOUS, WANTING TO TAKE IV OUT. STATES SHE IS LEAVING. PT STATES SHE CALLED OUT SEVERAL TIMES FOR PAIN MEIDCATION. I TRIED TO TALK WITH PT AND TELL HER I WOULD GO GET HER SOMETHING. SHE SAYS NO I'M LEAVING. PT RIPPED OUT OWN IV, WOULDN'T PUT A 2X2 ON ARM. PT SIGNED AMA PAPER SHE WAS WALKING DOWN THE ELAINE TO LEAVE. LEFT AMA
--- NOTE | 2019-05-18 15:15 | NUR ---
DR. GOODSON MADE AWARE PT LEFT AMA
== END 2019-05-18 15:32 | disposition left against medical advice (07) | DRG 392 ==
LOC: ED 09:28 → EDHOLD 13:35 → 4E 14:10
PROVIDERS: Nurse Practitioner Family; ADMIT Emergency Medicine
DX: R10.9 Unspecified abdominal pain (principal); K58.9 Irritable bowel syndrome, unspecified; F41.9 Anxiety disorder, unspecified; F32.9 Major depressive disorder, single episode, unspecified; K57.90 Diverticulosis of intestine, part unspecified, without perforation or abscess without bleeding; R19.7 Diarrhea, unspecified; F17.210 Nicotine dependence, cigarettes, uncomplicated; R00.1 Bradycardia, unspecified; E66.3 Overweight; Z53.21 Procedure and treatment not carried out due to patient leaving prior to being seen by health care provider; Z90.89 Acquired absence of other organs; Z88.8 Allergy status to other drugs, medicaments and biological substances; Z91.030 Bee allergy status; Z71.6 Tobacco abuse counseling; Z68.25 Body mass index [BMI] 25.0-25.9, adult

== ENCOUNTER → 2019-08-28 | Outpatient (CLI) | payer OTHER | END | disposition home or self-care (01) | LOC: RAD 08:38 | DX: R05 Cough (principal); R50.9 Fever, unspecified ==

== ENCOUNTER 2019-12-16 11:18 | Emergency (ER) | payer OTHER ==
[~2019-12-16] VITALS: Ht 167.6 cm; Wt 72.6 kg
[2019-12-16 11:21] VITALS: BP 112/74
[2019-12-16 11:54] LABS: BASO % 0.3 % (0.0-1.0); EOS # 0.1 10*3/uL (0.0-0.4); EOS % 0.5 % (1.0-4.0); HEMATOCRIT 43.6 % (37.0-47.0); HEMOGLOBIN 14.6 g/dl (12.0-16.0); LYMPH # 2.9 10*3/uL (1.3-4.4); LYMPH % 30.8 % (27.0-41.0); MEAN CELL VOLUME 94.4 fl (81.0-99.0); MEAN CORPUSCULAR HGB 31.6 pg (27.0-31.0); MEAN CORPUSCULAR HGB CONC 33.5 g/dl (33.0-37.0); MEAN PLATELET VOLUME 9.2 fl (9.6-12.3); MONO # 0.6 10*3/uL (0.1-1.0); MONO % 6.4 % (3.0-9.0); NEUT # 5.9 10*3/uL (2.3-7.9); NEUT % 61.8 % (47.0-73.0); PLATELET COUNT AUTOMATED 365 10*3/uL (130-400); RED BLOOD COUNT 4.62 10*6/uL (4.10-5.10); RED CELL DISTRI WIDTH 12.7 % (0-14.5); WHITE BLOOD COUNT 9.5 10*3/uL (4.8-10.8)
[2019-12-16 12:01] LABS: BILIRUBIN NEGATIVE (NEGATIVE); BLOOD 1+ (NEGATIVE); CLARITY CLEAR (CLEAR); COLOR YELLOW (YELLOW); GLUCOSE NEGATIVE (NEGATIVE); KETONE NEGATIVE (NEGATIVE); LEUKO ESTERASE NEGATIVE (NEGATIVE); NITRITE NEGATIVE (NEGATIVE); UROBILINOGEN 0.2 E.U./dl (0.2-1.0)
[2019-12-16 12:05] LABS: BACTERIA 1+; MUCOUS 1+
[2019-12-16 12:06] LABS: WBC 0-2 wbc/hpf (0-5)
[2019-12-16 12:07] LABS: BUN 10 mg/dl (7-24); CHLORIDE 113 mmol/L (98-107); CREATININE 0.71 mg/dL (0.55-1.02); POTASSIUM 3.6 mmol/L (3.5-5.1); SODIUM 140 mmol/L (136-145)
[2019-12-16] MEDS ORDERED: CYCLOBENZAPRINE10 MG PO (12:21)
[2019-12-16] MEDS ORDERED: NAPROSYN500 MG PO (12:21)
[2019-12-16] MEDS ORDERED: TYLENOL325 M1 PO (12:21)
== END 2019-12-16 12:34 | disposition home or self-care (01) ==
LOC: ED 11:18
PROVIDERS: Emergency Medicine
DX: M54.5 Low back pain (principal); R10.30 Lower abdominal pain, unspecified; F17.200 Nicotine dependence, unspecified, uncomplicated; Z90.49 Acquired absence of other specified parts of digestive tract; Z91.030 Bee allergy status; Z91.048 Other nonmedicinal substance allergy status

== ENCOUNTER → 2020-07-11 | Outpatient (CLI) | payer OTHER ==
[~2020-07-11] MED LIST changes: +CYCLOBENZAPRINE10 MG PO; +TYLENOL325 M1 PO
== END | disposition home or self-care (01) ==
LOC: CARD 11:39
DX: Z87.81 Personal history of (healed) traumatic fracture (principal); Z79.899 Other long term (current) drug therapy

== ENCOUNTER 2020-07-18 13:45 | Emergency (ER) | payer OTHER ==
[~2020-07-18] VITALS: Wt 59.0 kg
[2020-07-18 13:58] VITALS: BP 134/90
[2020-07-18 14:21] LABS: BASO % 0.2 % (0.0-1.0); EOS # 0.1 10*3/uL (0.0-0.4); EOS % 0.9 % (1.0-4.0); HEMATOCRIT 42.9 % (37.0-47.0); LYMPH # 2.5 10*3/uL (1.3-4.4); LYMPH % 43.2 % (27.0-41.0); MEAN CELL VOLUME 93.1 fl (81.0-99.0); MEAN CORPUSCULAR HGB 30.4 pg (27.0-31.0); MEAN CORPUSCULAR HGB CONC 32.6 g/dl (33.0-37.0); MEAN PLATELET VOLUME 8.5 fl (9.6-12.3); MONO # 0.4 10*3/uL (0.1-1.0); MONO % 7.4 % (3.0-9.0); NEUT # 2.8 10*3/uL (2.3-7.9); NEUT % 48.1 % (47.0-73.0); PLATELET COUNT AUTOMATED 441 10*3/uL (130-400); RED BLOOD COUNT 4.61 10*6/uL (4.10-5.10); RED CELL DISTRI WIDTH 12.8 % (0-14.5); WHITE BLOOD COUNT 5.8 10*3/uL (4.8-10.8)
[2020-07-18 14:35] LABS: ALBUMIN 4.1 gm/dl (3.1-4.5); ALKALINE PHOSPHATASE 63 U/L (45-117); BUN 7 mg/dl (7-24); CHLORIDE 110 mmol/L (98-107); CREATININE 0.71 mg/dL (0.55-1.02); POTASSIUM 3.7 mmol/L (3.5-5.1); SGOT/AST 13 IU/L (3-35); SGPT/ALT 31 U/L (12-78); SODIUM 140 mmol/L (136-145); TOTAL PROTEIN 7.5 gm/dL (6.4-8.2)
[2020-07-18 14:38] LABS: BILIRUBIN Negative; BLOOD 3+ (NEGATIVE); CLARITY Cloudy (CLEAR); COLOR Red (YELLOW); GLUCOSE Negative; KETONE Negative; LEUKO ESTERASE 1+ (NEGATIVE); NITRITE Negative (NEGATIVE); PH 6.5 (4.5-8.0); SPECIFIC GRAVITY 1.015 (1.001-1.030); UROBILINOGEN 0.2 E.U./dl (0.0-1.0)
[2020-07-18 14:40] LABS: BACTERIA 4+; RBC TNTC rbc/hpf (0-2)
== END 2020-07-18 15:04 | disposition home or self-care (01) ==
LOC: ED 13:45
PROVIDERS: Nurse Practitioner Family
DX: O20.0 Threatened abortion (principal); F17.200 Nicotine dependence, unspecified, uncomplicated; Z91.030 Bee allergy status; Z88.8 Allergy status to other drugs, medicaments and biological substances; Z79.899 Other long term (current) drug therapy

== ENCOUNTER → 2020-07-20 | Outpatient (CLI) | payer OTHER | END | disposition home or self-care (01) | LOC: LAB 13:52 | PROVIDERS: ATTEND Nurse Practitioner Family | DX: Z34.90 Encounter for supervision of normal pregnancy, unspecified, unspecified trimester (principal); Z3A.00 Weeks of gestation of pregnancy not specified ==

== ENCOUNTER → 2020-07-23 | Outpatient (CLI) | payer OTHER ==
[~2020-07-23] MED LIST changes: +CEPHALEXIN500 M1 PO
== END | disposition home or self-care (01) ==
LOC: LAB 13:23
PROVIDERS: ATTEND Obstetrics & Gynecology
DX: C20 Malignant neoplasm of rectum (principal)

== ENCOUNTER 2020-07-29 11:07 | Emergency (ER) | payer OTHER ==
[~2020-07-29] VITALS: Wt 61.2 kg
[~2020-07-29 11:07] MED LIST changes: -CEPHALEXIN500 M1 PO
[2020-07-29 11:17] VITALS: BP 100/65
[2020-07-29 11:51] LABS: BASO % 0.3 % (0.0-1.0); EOS % 0.4 % (1.0-4.0); HEMATOCRIT 41.9 % (37.0-47.0); LYMPH # 2.7 10*3/uL (1.3-4.4); LYMPH % 40.1 % (27.0-41.0); MEAN CELL VOLUME 92.7 fl (81.0-99.0); MEAN CORPUSCULAR HGB 30.3 pg (27.0-31.0); MEAN CORPUSCULAR HGB CONC 32.7 g/dl (33.0-37.0); MEAN PLATELET VOLUME 8.4 fl (9.6-12.3); MONO # 0.7 10*3/uL (0.1-1.0); MONO % 10.2 % (3.0-9.0); NEUT # 3.3 10*3/uL (2.3-7.9); PLATELET COUNT AUTOMATED 444 10*3/uL (130-400); RED BLOOD COUNT 4.52 10*6/uL (4.10-5.10); RED CELL DISTRI WIDTH 12.9 % (0-14.5); WHITE BLOOD COUNT 6.8 10*3/uL (4.8-10.8)
[2020-07-29 12:04] LABS: ALBUMIN 4.1 gm/dl (3.1-4.5); ALKALINE PHOSPHATASE 66 U/L (45-117); BUN 15 mg/dl (7-24); CHLORIDE 109 mmol/L (98-107); CREATININE 0.72 mg/dL (0.55-1.02); SGOT/AST 7 IU/L (3-35); SGPT/ALT 24 U/L (12-78); SODIUM 139 mmol/L (136-145); TOTAL PROTEIN 7.6 gm/dL (6.4-8.2)
[2020-07-29 12:40] LABS: BILIRUBIN Negative (Negative); BLOOD Negative (Negative); CLARITY Clear (Clear); COLOR Dark Yellow (Yellow); GLUCOSE Negative (Negative); KETONE Trace (Negative); LEUKO ESTERASE Negative (Negative); NITRITE Negative (Negative); SPECIFIC GRAVITY >= 1.030 (1.001-1.030)
[2020-07-29 12:53] LABS: BACTERIA 2+; CALCIUM OXALATE CRYSTALS TRACE; MUCOUS 1+
[2020-07-29] MEDS ORDERED: CEPHALEXIN500 M1 PO (14:24)
== END 2020-07-29 14:44 | disposition left against medical advice (07) ==
LOC: ED 11:07
PROVIDERS: Nurse Practitioner Family
DX: N30.00 Acute cystitis without hematuria (principal); F31.9 Bipolar disorder, unspecified; F17.200 Nicotine dependence, unspecified, uncomplicated; Z79.899 Other long term (current) drug therapy; Z91.030 Bee allergy status

== ENCOUNTER 2021-03-05 13:02 | Emergency (ER) | payer OTHER ==
[~2021-03-05] VITALS: Ht 167.6 cm; Wt 63.5 kg
[~2021-03-05 13:02] MED LIST changes: +CEPHALEXIN500 M1 PO
[2021-03-05 13:10] VITALS: BP 108/76
[2021-03-05 13:42] LABS: BILIRUBIN Negative (Negative); BLOOD Negative (Negative); CLARITY Cloudy (Clear); COLOR Dark Yellow (Yellow); GLUCOSE Negative (Negative); KETONE Trace (Negative); LEUKO ESTERASE Negative (Negative); NITRITE Negative (Negative); SPECIFIC GRAVITY 1.025 (1.001-1.030)
[2021-03-05 14:07] LABS: BACTERIA 2+; MUCOUS 3+
[2021-03-05 15:00] LABS: BASO % 0.3 % (0.0-1.0); EOS % 0.3 % (1.0-4.0); HEMATOCRIT 41.8 % (37.0-47.0); LYMPH # 2.2 10*3/uL (1.3-4.4); LYMPH % 38.1 % (27.0-41.0); MEAN CELL VOLUME 93.1 fl (81.0-99.0); MEAN CORPUSCULAR HGB 30.7 pg (27.0-31.0); MEAN PLATELET VOLUME 8.9 fl (9.6-12.3); MONO # 0.8 10*3/uL (0.1-1.0); NEUT # 2.8 10*3/uL (2.3-7.9); NEUT % 48.1 % (47.0-73.0); PLATELET COUNT AUTOMATED 339 10*3/uL (130-400); RED BLOOD COUNT 4.49 10*6/uL (4.10-5.10); RED CELL DISTRI WIDTH 12.4 % (0-14.5); WHITE BLOOD COUNT 5.8 10*3/uL (4.8-10.8)
[2021-03-05 15:09] LABS: ALKALINE PHOSPHATASE 68 U/L (45-117); BUN 13 mg/dl (7-24); CHLORIDE 108 mmol/L (98-107); CREATININE 0.67 mg/dL (0.55-1.02); LIPASE 45 U/L (73-393); SGOT/AST 15 IU/L (3-35); SGPT/ALT 30 U/L (12-78); SODIUM 139 mmol/L (136-145); TOTAL PROTEIN 7.3 gm/dL (6.4-8.2)
== END 2021-03-05 16:50 | disposition home or self-care (01) ==
LOC: ED 13:02
PROVIDERS: Physician Assistant
DX: N94.6 Dysmenorrhea, unspecified (principal); F17.200 Nicotine dependence, unspecified, uncomplicated; Z91.030 Bee allergy status; Z88.8 Allergy status to other drugs, medicaments and biological substances; Z79.899 Other long term (current) drug therapy; Z90.49 Acquired absence of other specified parts of digestive tract; Z98.890 Other specified postprocedural states

== ENCOUNTER 2022-02-21 11:11 | Emergency (ER) | payer SELFPAY ==
[2022-02-21 11:19] VITALS: BP 95/53
== END 2022-02-21 12:34 | disposition home or self-care (01) ==
LOC: ED 11:11
DX: S93.492A Sprain of other ligament of left ankle, initial encounter (principal); S93.602A Unspecified sprain of left foot, initial encounter; Z91.030 Bee allergy status; Z90.89 Acquired absence of other organs; W10.8XXA Fall (on) (from) other stairs and steps, initial encounter; Y93.89 Activity, other specified; Y92.89 Other specified places as the place of occurrence of the external cause; Y99.8 Other external cause status

== ENCOUNTER 2023-07-29 09:27 | Emergency (ER) | payer OTHER ==
[~2023-07-29] VITALS: Ht 167.6 cm; Wt 59.0 kg
[2023-07-29 09:45] VITALS: BP 110/78
== END 2023-07-29 12:11 | disposition left against medical advice (07) ==
LOC: ED 09:27
DX: R68.84 Jaw pain (principal); R51.9 Headache, unspecified; R22.0 Localized swelling, mass and lump, head; F32.A Depression, unspecified; F41.9 Anxiety disorder, unspecified; Z91.030 Bee allergy status; Z91.048 Other nonmedicinal substance allergy status; Z79.2 Long term (current) use of antibiotics; Z79.899 Other long term (current) drug therapy; Z90.89 Acquired absence of other organs; Z90.49 Acquired absence of other specified parts of digestive tract; W18.00XA Striking against unspecified object with subsequent fall, initial encounter; Y93.89 Activity, other specified; Y92.89 Other specified places as the place of occurrence of the external cause; Y99.8 Other external cause status

== ENCOUNTER 2023-11-19 02:33 | Emergency (ER) | payer OTHER ==
[~2023-11-19] VITALS: Ht 167.6 cm; Wt 59.0 kg
[2023-11-19 02:42] VITALS: BP 104/75
[2023-11-19 03:18] LABS: BILIRUBIN Negative (Negative); BLOOD Negative (Negative); CLARITY Clear (Clear); COLOR Yellow (Yellow); GLUCOSE Negative (Negative); KETONE Negative (Negative); NITRITE Positive (Negative); PH 5.5 (4.5-8.0); SPECIFIC GRAVITY 1.025 (1.001-1.030); UROBILINOGEN 0.2 E.U./dl (0.0-1.0)
[2023-11-19 03:25] LABS: URINE AMPHETAMINES Negative (1000ng/ml); URINE BARBITURATES Negative (200ng/ml); URINE BENZODIAZEPINES Negative (200ng/ml); URINE CANNABINOIDS (THC) Positive (50ng/ml); URINE COCAINE Negative (300ng/ml); URINE METHADONE Negative (300ng/ml); URINE OPIATES Negative (300ng/ml); URINE PHENCYCLIDINE Negative (25ng/ml)
[2023-11-19 03:31] LABS: BACTERIA 3+; LEUKO ESTERASE Trace (Negative); RBC 0-2 rbc/hpf (0-2)
[2023-11-19] MEDS ORDERED: CIPRO500 MG PO (03:53)
== END 2023-11-19 04:19 | disposition home or self-care (01) ==
LOC: ED 02:33
PROVIDERS: Internal Medicine
DX: N39.0 Urinary tract infection, site not specified (principal); F17.210 Nicotine dependence, cigarettes, uncomplicated; Z91.030 Bee allergy status; Z91.048 Other nonmedicinal substance allergy status; Z90.89 Acquired absence of other organs; Z90.49 Acquired absence of other specified parts of digestive tract

== ENCOUNTER → 2024-12-29 | Outpatient (CLI) | payer OTHER | END | disposition home or self-care (01) | LOC: US 09:54 | PROVIDERS: ATTEND Nurse Practitioner Women's Health | DX: Z34.81 Encounter for supervision of other normal pregnancy, first trimester (principal); Z3A.08 8 weeks gestation of pregnancy ==